=== PATIENT | male | born 1950 | race Caucasian/White ===

== ENCOUNTER 2017-05-08 07:42 | Inpatient (IN) | payer MEDICARE ==
[~2017-05-08] VITALS: Ht 170.2 cm; Wt 54.5 kg
[~2017-05-08 07:42] MED LIST: ACET160S2 PO; AMLO2.5T PO; ATOR20TA66 PO; BALS60OI TP; CLON-527 PO; CLON0.5T23 PO; DILT120C19; DILT60TA35 PO; DOCU1ENE3 PR; FAMO-129 PO; GABA-532 PO; GABA300C PO; GUAI600T45 PO; HYDR-565 PO; LACT1CAP65 PO; METH12VI2 SQ; MORP10SY4; MORP20SO PO; MSC30T PO; NITR0.4T51 SL; POLY17PO10 PO; POTA10CA44 PO; PRED20TA PO; PREG300C PO; SERIN IH; TIOT18CA3 IH; TIZA2TAB4 PO; ZOLP10TA5 PO
[2017-05-08] MEDS ORDERED: fentaNYL/PF 50MCG/1 ML 2ML syringe ONE (07:44)
[2017-05-08] MEDS ORDERED: diltiazem 5mg/ml 5ml inj. IV ONE (07:50)
[2017-05-08] MEDS ORDERED: ipratropium 0.5 MG/2.5ML nebule IH ONE (08:00)
[2017-05-08] MEDS ORDERED: albuterol 2.5 MG/3 ML nebule CONTNEB PRN (08:00)
[2017-05-08] MEDS ORDERED: ipratropium/albuterol 3ml nebule NEB ONE (08:05)
[2017-05-08 08:09] LABS: BASOPHILS % (AUTO) 0.1 % (0-1); EOSINOPHILS # (AUTO) 0.4 X10'3 (0-0.9); EOSINOPHILS % (AUTO) 1.2 % (0-6); HEMATOCRIT 34.8 % (42.0-52.0); HEMOGLOBIN 11.7 g/dl (14.0-17.9); LYMPHOCYTES # (AUTO) 2.2 X10'3 (1.1-4.8); LYMPHOCYTES % (AUTO) 7.7 % (21-51); MEAN CORPUSCULAR HEMOGLOBIN 29.8 PG (27.0-31.0); MEAN CORPUSCULAR HGB CONC 33.6 % (33.0-36.5); MEAN CORPUSCULAR VOLUME 88.8 FL (78-98); MEAN PLATELET VOLUME 6.7 FL (7.4-10.4); MONOCYTES # (AUTO) 1.1 X10'3 (0-0.9); MONOCYTES % (AUTO) 3.8 % (2-12); NEUTROPHILS # (AUTO) 25.5 X10'3 (1.8-7.7); NEUTROPHILS % (AUTO) 87.2 % (42-75); PLATELET COUNT 512 X10'3 (140-440); RED BLOOD COUNT 3.92 X10'6 (4.70-6.10); RED CELL DISTRIBUTION WIDTH 17.3 % (11.5-14.5)
[2017-05-08] MEDS ORDERED: levoFLOXACIN-Levaquin 750MG/D5 150 ML IV STA ×2 (08:09→09:04)
[2017-05-08] MEDS ORDERED: LORazepam 2 mg/ml vial IV ONE ×3 (08:10→10:45)
[2017-05-08] MEDS ORDERED: normal saline 1000ml 1,000 ML IV ONE (08:10)
[2017-05-08 08:13] LABS: WHITE BLOOD COUNT 29.2 X10'3 (4.5-11.0)
[2017-05-08 08:19] LABS: PARTIAL THROMBOPLASTIN TIME 27 SECONDS (22-32); PROTHROMBIN TIME 10.2 SECONDS (9.0-12.0)
[2017-05-08 08:24] LABS: ALANINE AMINOTRANSFERASE 25 U/L (12-78); ALBUMIN 1.8 G/DL (3.4-5.0); ALBUMIN/GLOBULIN RATIO 0.4 (1.1-1.5); ALKALINE PHOSPHATASE 140 IU/L (46-116); ANION GAP 11 (8-16); ASPARTATE AMINO TRANSFERASE 12 U/L (10-37); BILIRUBIN,TOTAL 0.4 MG/DL (0.1-1.0); BLOOD UREA NITROGEN 30 MG/DL (7-18); CALCIUM 8.9 MG/DL (8.5-10.1); CHLORIDE 108 MMOL/L (99-107); CREATININE 0.81 MG/DL (0.60-1.10); GLUCOSE 216 MG/DL (70-104); POTASSIUM 3.1 MMOL/L (3.5-5.1); SODIUM 148 MMOL/L (135-145); TOTAL CARBON DIOXIDE 28.8 MMOL/L (24-32); TOTAL PROTEIN 6.9 G/DL (6.4-8.2); eGFR > 90 ML/MIN
[2017-05-08] MEDS: cefTRIAXone 1g/NS 100ml IVPB 100 ML IV ONE ×2 (08:28→08:36)
[2017-05-08] MEDS: CefTRIAXone 1 gm/50ml D5W ADV 50 ML IV ONE ×2 (08:29→08:35)
[2017-05-08 08:30] LABS: ANISOCYTOSIS 1+; PLATELET ESTIMATE INCREASED; TOTAL CELLS COUNTED 100
[2017-05-08 08:31] LABS: MAGNESIUM 1.9 MG/DL (1.5-2.4)
[2017-05-08 08:32] LABS: SCHISTOCYTES FEW
[2017-05-08 08:46] LABS: ABG HCO3 23.7 mmol/L (22.0-26.0); ABG OXYGEN SATURATION 96.3 % (95-98); ABG PCO2 (T) 39.6 mmHg (35.0-48.0); ABG PH (T) 7.396 (7.350-7.450); ABG PO2 (T) 94.8 mmHg (83-108); FCOHb 0.9 % (0.5-1.5); FMetHb 0.3 % (0.3-1.12); FO2Hb 95.1 % (94-100); MINUTE VOLUME 18 L/min; PATIENT TEMPERATURE 37.3; RESPIRATORY RATE 18 b/min; TOTAL HEMOGLOBIN 10.4 G/dl (14.0-18.0)
[2017-05-08] MEDS ORDERED: azithromycin/NS 500mg/250ml 250 ML IV ONE (10:40)
[2017-05-08 11:31] LABS: CLARITY,URINE SLIGHTLY CLOUDY (Clear); COLOR,URINE STRAW (Yellow); GLUCOSE, URINE NEGATIVE (Neg); KETONES,URINE NEGATIVE (Neg); LEUKOCYTE ESTERASE ,URINE SMALL (Neg); NITRITES, URINE POSITIVE (Neg); OCCULT BLOOD,URINE SMALL (Neg); PROTEIN,URINE NEGATIVE (Neg); UA COLLECTION TYPE FOLEY CATH; UROBILINOGEN,URINE 0.2 E.U/dL (0.2-1.0)
[2017-05-08 11:37] LABS: MUCUS STRANDS FEW /LPF (Neg); SQUAMOUS EPITHELIAL CELL,UR FEW /LPF (FEW)
[2017-05-08 11:38] LABS: CAL OXALATE CRYSTALS 4+ /HPF (NEGATIVE); YEAST MANY /HPF (NEGATIVE)
[2017-05-08 11:39] LABS: BACTERIA,URINE 2+ /HPF (Neg); RBC,URINE 0-2 /HPF (0-2)
[2017-05-08] MEDS ORDERED: potassium chloride 10mEq CAPSULE.SA PO SCH ×2 (14:25→14:35)
[2017-05-08] MEDS ORDERED: potassium chloride 10mEq CAPSULE.SA PO ONE ×2 (14:25→14:44)
[2017-05-08 15:46] LABS: ABG BASE EXCESS 3.9 mmol/L (-2.0-3.0); ABG OXYGEN SATURATION 90.7 % (95-98); ABG PCO2 (T) 35.4 mmHg (35.0-48.0); ABG PH (T) 7.501 (7.350-7.450); FLOW 3 L/min; FMetHb 0.3 % (0.3-1.12); FO2Hb 89.5 % (94-100); TOTAL HEMOGLOBIN 10.6 G/dl (14.0-18.0)
[2017-05-08] MEDS ORDERED: oxyCODONE IR 5mg (immed. release) tablet PO ONE (17:50)
[2017-05-08] MEDS ORDERED: ondansetron/PF 4mg/2ml inj IV PRN (20:15)
[2017-05-08] MEDS ORDERED: magnesium 4gm in 100ml NS 100 ML IV PRN (20:15)
[2017-05-08] MEDS ORDERED: magnesium 2GM in 50ml NS 50 ML IV PRN (20:15)
[2017-05-08] MEDS ORDERED: HYDROcodone/acetaminophen 5mg/325mg tablet PO PRN (20:15)
[2017-05-08] MEDS ORDERED: magnesium hydroxide 30ml (MOM) UD suspension PO PRN (20:15)
[2017-05-08] MEDS ORDERED: magnesium Cl slow-release 64mg tablet PO PRN (20:15)
[2017-05-08] MEDS ORDERED: potassium Cl 40MEQ/NS 500ml 500 ML IV PRN ×2 (20:15)
[2017-05-08] MEDS ORDERED: albuterol 2.5 MG/3 ML nebule NEB PRN (20:15)
[2017-05-08] MEDS ORDERED: mag hydrox/Alum hydrox/simeth 30ml oral suspension PO PRN (20:15)
[2017-05-08] MEDS ORDERED: potassium Cl 20 mEq SR tablet PO PRN (20:15)
[2017-05-08] MEDS ORDERED: acetaminophen 325mg tablet PO PRN ×2 (20:15)
[2017-05-08 22:00] VITALS: BP 135/85
[2017-05-08] MEDS ORDERED: vancomycin/NS 1 GM ADD-VANTAGE 250 ML IV ONE (22:05)
[2017-05-08] MEDS: HYDROcodone/acetaminophen 10/325mg tab PO PRN (23:22)
[2017-05-08] MEDS: normal saline 1000ml 1,000 ML IV SCH (23:24)
[2017-05-09] MEDS: piperacillin/tazo 3.375gm/50ml 50 ML IV SCH ×3 (00:56→15:19)
[2017-05-09 04:00] VITALS: BP 135/81
[2017-05-09] MEDS: HYDROcodone/acetaminophen 10/325mg tab PO PRN ×4 (04:43→22:57)
[2017-05-09 06:00] VITALS: BP 135/75
[2017-05-09 06:27] LABS: BASOPHILS % (AUTO) 0.3 % (0-1); EOSINOPHILS % (AUTO) 0.2 % (0-6); HEMATOCRIT 28.7 % (42.0-52.0); HEMOGLOBIN 9.6 g/dl (14.0-17.9); LYMPHOCYTES # (AUTO) 1.6 X10'3 (1.1-4.8); LYMPHOCYTES % (AUTO) 10.9 % (21-51); MEAN CORPUSCULAR HEMOGLOBIN 29.5 PG (27.0-31.0); MEAN CORPUSCULAR HGB CONC 33.6 % (33.0-36.5); MEAN CORPUSCULAR VOLUME 87.9 FL (78-98); MEAN PLATELET VOLUME 6.8 FL (7.4-10.4); MONOCYTES # (AUTO) 0.8 X10'3 (0-0.9); MONOCYTES % (AUTO) 5.3 % (2-12); NEUTROPHILS # (AUTO) 12.6 X10'3 (1.8-7.7); NEUTROPHILS % (AUTO) 83.3 % (42-75); PLATELET COUNT 392 X10'3 (140-440); RED BLOOD COUNT 3.26 X10'6 (4.70-6.10); RED CELL DISTRIBUTION WIDTH 17.3 % (11.5-14.5); WHITE BLOOD COUNT 15.1 X10'3 (4.5-11.0)
[2017-05-09 07:08] LABS: ANION GAP 7 (8-16); BLOOD UREA NITROGEN 22 MG/DL (7-18); BUN/CREATININE RATIO 34.4 (5.4-32.0); CHLORIDE 110 MMOL/L (99-107); CREATININE 0.64 MG/DL (0.60-1.10); GLUCOSE 77 MG/DL (70-104); POTASSIUM 3.2 MMOL/L (3.5-5.1); SODIUM 146 MMOL/L (135-145); TOTAL CARBON DIOXIDE 28.6 MMOL/L (24-32); eGFR > 90 ML/MIN
[2017-05-09 07:09] LABS: ALANINE AMINOTRANSFERASE 10 U/L (12-78); ALBUMIN 1.4 G/DL (3.4-5.0); ALBUMIN/GLOBULIN RATIO 0.3 (1.1-1.5); ALKALINE PHOSPHATASE 104 IU/L (46-116); ASPARTATE AMINO TRANSFERASE 10 U/L (10-37); BILIRUBIN,TOTAL 0.3 MG/DL (0.1-1.0); CALCIUM 8.7 MG/DL (8.5-10.1); MAGNESIUM 1.9 MG/DL (1.5-2.4); TOTAL PROTEIN 5.8 G/DL (6.4-8.2)
[2017-05-09] MEDS: K and/or MAG REPLACEMENT MC SCH (08:00)
[2017-05-09] MEDS: docusate sod 100mg capsule PO SCH ×2 (08:01→20:10)
[2017-05-09] MEDS: potassium Cl 20 mEq SR tablet PO PRN ×2 (08:01→15:19)
[2017-05-09] MEDS: pantoprazole 40 MG vial IV SCH (08:02)
[2017-05-09] MEDS: enoxaparin 40mg/0.4ml syringe SQ SCH (08:02)
[2017-05-09] MEDS: normal saline 1000ml 1,000 ML IV SCH ×2 (09:31→22:51)
[2017-05-09 10:10] LABS: TOTAL CELLS COUNTED 100
[2017-05-09 10:11] LABS: ANISOCYTOSIS 1+; PLATELET ESTIMATE NORMAL; TOXIC GRANULATION 1+
[2017-05-09 10:12] LABS: SCHISTOCYTES FEW
[2017-05-09 11:00] VITALS: BP 146/82
[2017-05-09] MEDS: VANCOMYCIN 750MG IV in NS 250 ML IV SCH ×2 (11:55→22:57)
[2017-05-09] MEDS ORDERED: DOCUSATE SODIUM PR PRN (12:15)
[2017-05-09] MEDS ORDERED: BENZOCAINE PR PRN (12:15)
[2017-05-09] MEDS ORDERED: [UNRECOGNIZED DRUG - OTHER] PR PRN (12:15)
[2017-05-09] MEDS ORDERED: atorvastatin 20mg tablet PO SCH (13:00)
[2017-05-09 15:00] VITALS: BP 156/89
[2017-05-09] MEDS: LACTOSE-FREE FOOD 237ML (BOOST) PO SCH (18:01)
[2017-05-09 19:00] VITALS: BP 142/88
[2017-05-09 23:00] VITALS: BP 154/90
[2017-05-10] MEDS: piperacillin/tazo 3.375gm/50ml 50 ML IV SCH ×3 (00:17→16:23)
[2017-05-10] MEDS: gabapentin 300mg capsule PO PRN ×2 (02:18→21:46)
[2017-05-10 03:00] VITALS: BP 150/88
[2017-05-10 06:00] VITALS: BP 153/90
[2017-05-10 06:41] LABS: BASOPHILS % (AUTO) 0 % (0-1); EOSINOPHILS # (AUTO) 0.2 X10'3 (0-0.9); EOSINOPHILS % (AUTO) 1.3 % (0-6); HEMATOCRIT 30.2 % (42.0-52.0); HEMOGLOBIN 10.2 g/dl (14.0-17.9); LYMPHOCYTES # (AUTO) 2.7 X10'3 (1.1-4.8); LYMPHOCYTES % (AUTO) 14.8 % (21-51); MEAN CORPUSCULAR HEMOGLOBIN 29.5 PG (27.0-31.0); MEAN CORPUSCULAR HGB CONC 33.8 % (33.0-36.5); MEAN CORPUSCULAR VOLUME 87.4 FL (78-98); MEAN PLATELET VOLUME 6.7 FL (7.4-10.4); MONOCYTES # (AUTO) 0.8 X10'3 (0-0.9); MONOCYTES % (AUTO) 4.7 % (2-12); NEUTROPHILS # (AUTO) 14.4 X10'3 (1.8-7.7); NEUTROPHILS % (AUTO) 79.2 % (42-75); PLATELET COUNT 480 X10'3 (140-440); RED BLOOD COUNT 3.46 X10'6 (4.70-6.10); RED CELL DISTRIBUTION WIDTH 17.7 % (11.5-14.5); WHITE BLOOD COUNT 18.2 X10'3 (4.5-11.0)
[2017-05-10] MEDS: potassium Cl 20 mEq SR tablet PO PRN ×2 (07:30→13:30)
[2017-05-10] MEDS: HYDROcodone/acetaminophen 10/325mg tab PO PRN ×4 (07:30→21:46)
[2017-05-10] MEDS: LACTOBACILLUS RHAMNOSUS GG 15 billion unit sprinkle caps PO SCH (07:30)
[2017-05-10 07:49] LABS: ALANINE AMINOTRANSFERASE 18 U/L (12-78); ALBUMIN 1.5 G/DL (3.4-5.0); ALBUMIN/GLOBULIN RATIO 0.3 (1.1-1.5); ALKALINE PHOSPHATASE 104 IU/L (46-116); ANION GAP 12 (8-16); ASPARTATE AMINO TRANSFERASE 16 U/L (10-37); BILIRUBIN,TOTAL 0.4 MG/DL (0.1-1.0); BLOOD UREA NITROGEN 10 MG/DL (7-18); BUN/CREATININE RATIO 16.7 (5.4-32.0); CALCIUM 8.1 MG/DL (8.5-10.1); CHLORIDE 107 MMOL/L (99-107); GLUCOSE 63 MG/DL (70-104); MAGNESIUM 1.6 MG/DL (1.5-2.4); POTASSIUM 3.1 MMOL/L (3.5-5.1); SODIUM 143 MMOL/L (135-145); TOTAL CARBON DIOXIDE 23.6 MMOL/L (24-32); TOTAL PROTEIN 6.1 G/DL (6.4-8.2); eGFR > 90 ML/MIN
[2017-05-10 07:53] LABS: ANISOCYTOSIS 1+; NUCLEATED RED BLOOD CELLS 1 /100WBC (0-0); PLATELET ESTIMATE INCREASED; POLYCHROMASIA 1+; TOTAL CELLS COUNTED 100; TOXIC GRANULATION 1+
[2017-05-10] MEDS: K and/or MAG REPLACEMENT MC SCH (08:00)
[2017-05-10] MEDS: enoxaparin 40mg/0.4ml syringe SQ SCH (08:00)
[2017-05-10] MEDS: pantoprazole 40 MG vial IV SCH (08:00)
[2017-05-10] MEDS ORDERED: clonazePAM 0.5mg tablet PO PRN (08:00)
[2017-05-10] MEDS: docusate sod 100mg capsule PO SCH ×2 (08:00→20:00)
[2017-05-10] MEDS ORDERED: VANCOMYCIN LEVEL IV ONE (09:30)
[2017-05-10] MEDS: VANCOMYCIN 750MG IV in NS 250 ML IV SCH (10:56)
[2017-05-10 11:00] VITALS: BP 150/93
[2017-05-10] MEDS: LACTOSE-FREE FOOD 237ML (BOOST) PO SCH ×2 (12:30→17:54)
[2017-05-10] MEDS: normal saline 1000ml 1,000 ML IV SCH (13:25)
[2017-05-10 15:00] VITALS: BP 139/82
[2017-05-10 19:00] VITALS: BP 118/52
[2017-05-10] MEDS: vancomycin/NS 1 GM ADD-VANTAGE 250 ML IV SCH (21:46)
[2017-05-10 23:00] VITALS: BP 149/86
[2017-05-11] MEDS: piperacillin/tazo 3.375gm/50ml 50 ML IV SCH ×4 (00:45→23:30)
[2017-05-11] MEDS: normal saline 1000ml 1,000 ML IV SCH ×3 (01:42→21:05)
[2017-05-11 03:00] VITALS: BP 158/92
[2017-05-11] MEDS: HYDROcodone/acetaminophen 10/325mg tab PO PRN ×5 (04:34→21:39)
[2017-05-11 06:00] VITALS: BP 149/87
[2017-05-11 06:22] LABS: BASOPHILS % (AUTO) 0.2 % (0-1); EOSINOPHILS # (AUTO) 0.3 X10'3 (0-0.9); EOSINOPHILS % (AUTO) 1.4 % (0-6); HEMATOCRIT 29.7 % (42.0-52.0); HEMOGLOBIN 10.1 g/dl (14.0-17.9); LYMPHOCYTES # (AUTO) 2.3 X10'3 (1.1-4.8); LYMPHOCYTES % (AUTO) 12.6 % (21-51); MEAN CORPUSCULAR HEMOGLOBIN 29.9 PG (27.0-31.0); MEAN CORPUSCULAR HGB CONC 33.9 % (33.0-36.5); MEAN CORPUSCULAR VOLUME 88.2 FL (78-98); MEAN PLATELET VOLUME 6.7 FL (7.4-10.4); MONOCYTES # (AUTO) 0.6 X10'3 (0-0.9); MONOCYTES % (AUTO) 3.3 % (2-12); NEUTROPHILS # (AUTO) 14.7 X10'3 (1.8-7.7); NEUTROPHILS % (AUTO) 82.5 % (42-75); PLATELET COUNT 499 X10'3 (140-440); RED BLOOD COUNT 3.37 X10'6 (4.70-6.10); RED CELL DISTRIBUTION WIDTH 17.2 % (11.5-14.5); WHITE BLOOD COUNT 17.9 X10'3 (4.5-11.0)
[2017-05-11 06:53] LABS: ALANINE AMINOTRANSFERASE 15 U/L (12-78); ALBUMIN 1.5 G/DL (3.4-5.0); ALBUMIN/GLOBULIN RATIO 0.3 (1.1-1.5); ALKALINE PHOSPHATASE 94 IU/L (46-116); ANION GAP 10 (8-16); ASPARTATE AMINO TRANSFERASE 14 U/L (10-37); BILIRUBIN,TOTAL 0.4 MG/DL (0.1-1.0); BLOOD UREA NITROGEN 8 MG/DL (7-18); BUN/CREATININE RATIO 13.6 (5.4-32.0); CHLORIDE 107 MMOL/L (99-107); CREATININE 0.59 MG/DL (0.60-1.10); GLUCOSE 71 MG/DL (70-104); MAGNESIUM 1.7 MG/DL (1.5-2.4); POTASSIUM 3.1 MMOL/L (3.5-5.1); SODIUM 142 MMOL/L (135-145); TOTAL CARBON DIOXIDE 24.8 MMOL/L (24-32); eGFR > 90 ML/MIN
[2017-05-11] MEDS: docusate sod 100mg capsule PO SCH ×2 (08:00→19:58)
[2017-05-11] MEDS: K and/or MAG REPLACEMENT MC SCH (08:00)
[2017-05-11] MEDS: gabapentin 300mg capsule PO PRN ×2 (08:52→21:39)
[2017-05-11] MEDS: LACTOBACILLUS RHAMNOSUS GG 15 billion unit sprinkle caps PO SCH (08:52)
[2017-05-11] MEDS: pantoprazole 40 MG vial IV SCH (08:53)
[2017-05-11] MEDS: potassium Cl 20 mEq SR tablet PO PRN ×3 (08:53→17:25)
[2017-05-11] MEDS: enoxaparin 40mg/0.4ml syringe SQ SCH (08:54)
[2017-05-11 09:50] LABS: PLATELET ESTIMATE INCREASED; TOTAL CELLS COUNTED 100
[2017-05-11 09:51] LABS: ANISOCYTOSIS 1+; MICROCYTOSIS 1+; POLYCHROMASIA 1+
[2017-05-11] MEDS: vancomycin/NS 1 GM ADD-VANTAGE 250 ML IV SCH ×2 (10:00→19:58)
[2017-05-11 11:00] VITALS: BP 146/86
[2017-05-11] MEDS: LACTOSE-FREE FOOD 237ML (BOOST) PO SCH ×2 (13:05→17:46)
[2017-05-11 15:00] VITALS: BP 125/82
[2017-05-11 18:00] VITALS: BP 143/83
[2017-05-11 22:00] VITALS: BP 126/88
[2017-05-12 02:00] VITALS: BP 149/89
[2017-05-12] MEDS: HYDROcodone/acetaminophen 10/325mg tab PO PRN ×4 (05:04→20:45)
[2017-05-12 05:10] LABS: BASOPHILS % (AUTO) 0.2 % (0-1); EOSINOPHILS # (AUTO) 0.3 X10'3 (0-0.9); EOSINOPHILS % (AUTO) 1.9 % (0-6); HEMOGLOBIN 10.1 g/dl (14.0-17.9); LYMPHOCYTES # (AUTO) 2.7 X10'3 (1.1-4.8); MEAN CORPUSCULAR HEMOGLOBIN 29.6 PG (27.0-31.0); MEAN CORPUSCULAR HGB CONC 33.7 % (33.0-36.5); MEAN PLATELET VOLUME 6.5 FL (7.4-10.4); MONOCYTES # (AUTO) 0.6 X10'3 (0-0.9); MONOCYTES % (AUTO) 3.6 % (2-12); NEUTROPHILS # (AUTO) 13.3 X10'3 (1.8-7.7); NEUTROPHILS % (AUTO) 78.3 % (42-75); PLATELET COUNT 529 X10'3 (140-440); RED BLOOD COUNT 3.41 X10'6 (4.70-6.10); RED CELL DISTRIBUTION WIDTH 17.5 % (11.5-14.5)
[2017-05-12 06:00] VITALS: BP 155/90
[2017-05-12 06:01] LABS: ALANINE AMINOTRANSFERASE 12 U/L (12-78); ALBUMIN 1.4 G/DL (3.4-5.0); ALBUMIN/GLOBULIN RATIO 0.3 (1.1-1.5); ALKALINE PHOSPHATASE 84 IU/L (46-116); ANION GAP 5 (8-16); ASPARTATE AMINO TRANSFERASE 14 U/L (10-37); BILIRUBIN,TOTAL 0.2 MG/DL (0.1-1.0); BLOOD UREA NITROGEN 5 MG/DL (7-18); BUN/CREATININE RATIO 8.1 (5.4-32.0); CHLORIDE 109 MMOL/L (99-107); CREATININE 0.62 MG/DL (0.60-1.10); GLUCOSE 72 MG/DL (70-104); MAGNESIUM 1.8 MG/DL (1.5-2.4); POTASSIUM 3.6 MMOL/L (3.5-5.1); SODIUM 142 MMOL/L (135-145); TOTAL CARBON DIOXIDE 27.7 MMOL/L (24-32); eGFR > 90 ML/MIN
[2017-05-12 07:42] LABS: ANISOCYTOSIS 1+; PLATELET ESTIMATE INCREASED; POLYCHROMASIA 1+; TOTAL CELLS COUNTED 100
[2017-05-12 07:43] LABS: TOXIC GRANULATION 2+
[2017-05-12] MEDS: docusate sod 100mg capsule PO SCH ×2 (08:00→20:00)
[2017-05-12] MEDS: K and/or MAG REPLACEMENT MC SCH (08:00)
[2017-05-12] MEDS: LACTOBACILLUS RHAMNOSUS GG 15 billion unit sprinkle caps PO SCH (09:07)
[2017-05-12] MEDS: pantoprazole 40mg Tablet.DR PO SCH (09:08)
[2017-05-12] MEDS: enoxaparin 40mg/0.4ml syringe SQ SCH (09:09)
[2017-05-12] MEDS: levoFLOXACIN-Levaquin 750MG/D5 150 ML IV SCH (09:15)
[2017-05-12] MEDS ORDERED: VANCOMYCIN LEVEL IV ONE (09:30)
[2017-05-12 11:00] VITALS: BP 137/85
[2017-05-12] MEDS: ipratropium/albuterol 3ml nebule NEB SCH ×4 (11:07→23:04)
[2017-05-12] MEDS: linezolid 600mg/300ml PREMIX 300 ML IV SCH ×2 (11:32→20:39)
[2017-05-12] MEDS: normal saline 1000ml 1,000 ML IV SCH (11:32)
[2017-05-12] MEDS: LACTOSE-FREE FOOD 237ML (BOOST) PO SCH ×2 (13:15→17:30)
[2017-05-12 15:00] VITALS: BP 126/74
[2017-05-12] MEDS: benzonatate 100mg capsule PO SCH (16:08)
[2017-05-12 18:00] VITALS: BP_SYST 141; BP_SYST 92; BP_DIAS 57; BP_DIAS 83
[2017-05-12 22:00] VITALS: BP 151/82
[2017-05-13] MEDS: benzonatate 100mg capsule PO SCH ×3 (00:13→15:41)
[2017-05-13 02:00] VITALS: BP 153/83
[2017-05-13] MEDS: HYDROcodone/acetaminophen 10/325mg tab PO PRN ×5 (02:03→21:47)
[2017-05-13] MEDS: ipratropium/albuterol 3ml nebule NEB SCH ×6 (03:45→23:00)
[2017-05-13] MEDS: normal saline 1000ml 1,000 ML IV SCH (04:50)
[2017-05-13 06:00] VITALS: BP 148/94
[2017-05-13 06:10] LABS: BASOPHILS % (AUTO) 0.2 % (0-1); EOSINOPHILS # (AUTO) 0.4 X10'3 (0-0.9); EOSINOPHILS % (AUTO) 1.9 % (0-6); HEMATOCRIT 28.9 % (42.0-52.0); HEMOGLOBIN 9.7 g/dl (14.0-17.9); LYMPHOCYTES # (AUTO) 2.7 X10'3 (1.1-4.8); LYMPHOCYTES % (AUTO) 13.7 % (21-51); MEAN CORPUSCULAR HEMOGLOBIN 29.4 PG (27.0-31.0); MEAN CORPUSCULAR HGB CONC 33.6 % (33.0-36.5); MEAN CORPUSCULAR VOLUME 87.6 FL (78-98); MEAN PLATELET VOLUME 6.6 FL (7.4-10.4); MONOCYTES # (AUTO) 0.6 X10'3 (0-0.9); MONOCYTES % (AUTO) 2.9 % (2-12); NEUTROPHILS # (AUTO) 15.7 X10'3 (1.8-7.7); NEUTROPHILS % (AUTO) 81.3 % (42-75); PLATELET COUNT 545 X10'3 (140-440); RED CELL DISTRIBUTION WIDTH 17.1 % (11.5-14.5); WHITE BLOOD COUNT 19.4 X10'3 (4.5-11.0)
[2017-05-13 06:32] LABS: ALANINE AMINOTRANSFERASE 13 U/L (12-78); ALBUMIN 1.5 G/DL (3.4-5.0); ALBUMIN/GLOBULIN RATIO 0.3 (1.1-1.5); ALKALINE PHOSPHATASE 88 IU/L (46-116); ANION GAP 9 (8-16); ASPARTATE AMINO TRANSFERASE 12 U/L (10-37); BILIRUBIN,TOTAL 0.2 MG/DL (0.1-1.0); BLOOD UREA NITROGEN 6 MG/DL (7-18); BUN/CREATININE RATIO 9.7 (5.4-32.0); CALCIUM 8.2 MG/DL (8.5-10.1); CHLORIDE 105 MMOL/L (99-107); CREATININE 0.62 MG/DL (0.60-1.10); GLUCOSE 122 MG/DL (70-104); MAGNESIUM 1.6 MG/DL (1.5-2.4); POTASSIUM 3.3 MMOL/L (3.5-5.1); SODIUM 140 MMOL/L (135-145); TOTAL CARBON DIOXIDE 25.6 MMOL/L (24-32); TOTAL PROTEIN 6.1 G/DL (6.4-8.2); eGFR > 90 ML/MIN
[2017-05-13] MEDS: K and/or MAG REPLACEMENT MC SCH (06:45)
[2017-05-13] MEDS ORDERED: potassium Cl 20 mEq SR tablet PO PRN (07:25)
[2017-05-13] MEDS ORDERED: magnesium Cl slow-release 64mg tablet PO PRN (07:25)
[2017-05-13] MEDS ORDERED: potassium Cl 40MEQ/NS 500ml 500 ML IV PRN ×2 (07:25)
[2017-05-13] MEDS ORDERED: magnesium 4gm in 100ml NS 100 ML IV PRN (07:25)
[2017-05-13] MEDS ORDERED: magnesium 2GM in 50ml NS 50 ML IV PRN (07:25)
[2017-05-13] MEDS: pantoprazole 40mg Tablet.DR PO SCH (07:43)
[2017-05-13] MEDS: LACTOBACILLUS RHAMNOSUS GG 15 billion unit sprinkle caps PO SCH (07:43)
[2017-05-13] MEDS: levoFLOXACIN-Levaquin 750MG/D5 150 ML IV SCH (07:44)
[2017-05-13] MEDS: enoxaparin 40mg/0.4ml syringe SQ SCH (07:45)
[2017-05-13] MEDS: potassium Cl 20 mEq SR tablet PO PRN ×3 (07:46→16:58)
[2017-05-13] MEDS: docusate sod 100mg capsule PO SCH ×2 (08:00→20:00)
[2017-05-13 09:04] LABS: ANISOCYTOSIS 1+; PLATELET ESTIMATE INCREASED; TOTAL CELLS COUNTED 100
[2017-05-13 09:06] LABS: POLYCHROMASIA FEW
[2017-05-13 09:07] LABS: STOMATOCYTES FEW
[2017-05-13] MEDS: linezolid 600mg tablet PO SCH ×2 (09:10→21:46)
[2017-05-13 11:00] VITALS: BP 151/89
[2017-05-13] MEDS: LACTOSE-FREE FOOD 237ML (BOOST) PO SCH ×2 (13:15→17:56)
[2017-05-13 15:00] VITALS: BP 148/88
[2017-05-13] MEDS: Potassium Cl inj 20 MEQ in normal saline 1000ml 1,000 ML IV SCH (16:57)
[2017-05-13] MEDS: fluconazole 100mg tablet PO SCH (16:58)
[2017-05-13 18:00] VITALS: BP 153/94
[2017-05-13 22:00] VITALS: BP 160/97
[2017-05-14] MEDS: benzonatate 100mg capsule PO SCH ×2 (00:39→08:41)
[2017-05-14 03:00] VITALS: BP 156/86
[2017-05-14] MEDS: HYDROcodone/acetaminophen 10/325mg tab PO PRN ×3 (03:04→13:57)
[2017-05-14 06:00] VITALS: BP 155/99
[2017-05-14 06:40] LABS: BASOPHILS # (AUTO) 0.1 X10'3 (0-0.2); BASOPHILS % (AUTO) 0.3 % (0-1); EOSINOPHILS # (AUTO) 0.4 X10'3 (0-0.9); EOSINOPHILS % (AUTO) 2.6 % (0-6); HEMATOCRIT 30.6 % (42.0-52.0); HEMOGLOBIN 10.3 g/dl (14.0-17.9); LYMPHOCYTES # (AUTO) 2.1 X10'3 (1.1-4.8); LYMPHOCYTES % (AUTO) 12.5 % (21-51); MEAN CORPUSCULAR HEMOGLOBIN 29.7 PG (27.0-31.0); MEAN CORPUSCULAR HGB CONC 33.7 % (33.0-36.5); MEAN CORPUSCULAR VOLUME 88.3 FL (78-98); MEAN PLATELET VOLUME 6.6 FL (7.4-10.4); MONOCYTES # (AUTO) 0.5 X10'3 (0-0.9); MONOCYTES % (AUTO) 3.1 % (2-12); NEUTROPHILS # (AUTO) 13.8 X10'3 (1.8-7.7); NEUTROPHILS % (AUTO) 81.5 % (42-75); PLATELET COUNT 556 X10'3 (140-440); RED BLOOD COUNT 3.46 X10'6 (4.70-6.10); RED CELL DISTRIBUTION WIDTH 18.3 % (11.5-14.5); WHITE BLOOD COUNT 16.9 X10'3 (4.5-11.0)
[2017-05-14] MEDS: Potassium Cl inj 20 MEQ in normal saline 1000ml 1,000 ML IV SCH (06:56)
[2017-05-14] MEDS: ipratropium/albuterol 3ml nebule NEB SCH (07:00)
[2017-05-14 07:10] LABS: ALBUMIN 1.6 G/DL (3.4-5.0); ANION GAP 6 (8-16); BLOOD UREA NITROGEN 3 MG/DL (7-18); BUN/CREATININE RATIO 4.8 (5.4-32.0); CALCIUM 8.3 MG/DL (8.5-10.1); CHLORIDE 103 MMOL/L (99-107); CREATININE 0.63 MG/DL (0.60-1.10); GLUCOSE 75 MG/DL (70-104); MAGNESIUM 1.6 MG/DL (1.5-2.4); SODIUM 137 MMOL/L (135-145); TOTAL CARBON DIOXIDE 28.2 MMOL/L (24-32); eGFR > 90 ML/MIN
[2017-05-14 07:37] LABS: ANISOCYTOSIS 2+; BANDS% (MANUAL) 3 % (0-10); EOSINOPHILS % (MANUAL) 1 % (0-6); LYMPHOCYTES % (MANUAL) 9 % (21-51); METAMYLEOCYTES% (MANUAL) 5 % (0-0); MONOCYTES % (MANUAL) 4 % (2-12); MYELOCYTES % (MANUAL) 1 % (0-0); NEUTROPHILS % (MANUAL) 77 % (42-75); PLATELET ESTIMATE INCREASED; PROMYELOCYTES % (MANUAL) 1 % (0-0); TOTAL CELLS COUNTED 100
[2017-05-14] MEDS: K and/or MAG REPLACEMENT MC SCH (08:00)
[2017-05-14] MEDS: docusate sod 100mg capsule PO SCH (08:00)
[2017-05-14] MEDS ORDERED: diltiazem CD 120mg capsule (once-daily) PO SCH (08:35)
[2017-05-14] MEDS: pantoprazole 40mg Tablet.DR PO SCH (08:38)
[2017-05-14] MEDS: LACTOBACILLUS RHAMNOSUS GG 15 billion unit sprinkle caps PO SCH (08:38)
[2017-05-14] MEDS: levoFLOXACIN-Levaquin 750MG/D5 150 ML IV SCH (08:39)
[2017-05-14] MEDS: fluconazole 100mg tablet PO SCH (08:40)
[2017-05-14] MEDS: linezolid 600mg tablet PO SCH (08:41)
[2017-05-14] MEDS: enoxaparin 40mg/0.4ml syringe SQ SCH (08:42)
[2017-05-14 11:00] VITALS: BP 152/90
[2017-05-14] MEDS ORDERED: FLUC100T9 PO (12:21)
[2017-05-14] MEDS ORDERED: LINE600T6 PO (12:21)
[2017-05-14] MEDS ORDERED: LEVO750T21 PO (12:21)
[2017-05-14] MEDS ORDERED: CARCD120C PO (12:21)
[2017-05-14] MEDS: LACTOSE-FREE FOOD 237ML (BOOST) PO SCH (12:30)
[2017-05-14] MEDS ORDERED: DOCU-28 PO (12:32)
[2017-05-15] MEDS ORDERED: MORP10SY4 (09:46)
== END 2017-05-14 14:35 | disposition home health service (06) | DRG 871 ==
LOC: ER 07:42 → ED HOLD 20:11 → PCU 3S 20:55
PROVIDERS: ADMIT Internal Medicine; ATTEND Internal Medicine
PROC: 5A09357 Assistance with Respiratory Ventilation, Less than 24 Consecutive Hours, Continuous Positive Airway Pressure (ICD-10-PCS; principal; 2017-05-08)
DX: A41.9 Sepsis, unspecified organism (principal); J18.9 Pneumonia, unspecified organism; J96.21 Acute and chronic respiratory failure with hypoxia; E43 Unspecified severe protein-calorie malnutrition; E87.0 Hyperosmolality and hypernatremia; J90 Pleural effusion, not elsewhere classified; I48.91 Unspecified atrial fibrillation; N39.0 Urinary tract infection, site not specified; Z68.1 Body mass index [BMI] 19.9 or less, adult; J44.0 Chronic obstructive pulmonary disease with (acute) lower respiratory infection; J44.1 Chronic obstructive pulmonary disease with (acute) exacerbation; E86.0 Dehydration; Z16.21 Resistance to vancomycin; M21.372 Foot drop, left foot; M21.371 Foot drop, right foot; B95.2 Enterococcus as the cause of diseases classified elsewhere; B96.20 Unspecified Escherichia coli [E. coli] as the cause of diseases classified elsewhere; E87.6 Hypokalemia; I10 Essential (primary) hypertension; I25.10 Atherosclerotic heart disease of native coronary artery without angina pectoris; I25.2 Old myocardial infarction; Z79.899 Other long term (current) drug therapy; Z91.040 Latex allergy status; Z88.8 Allergy status to other drugs, medicaments and biological substances; Z91.018 Allergy to other foods; Z86.73 Personal history of transient ischemic attack (TIA), and cerebral infarction without residual deficits; Z85.118 Personal history of other malignant neoplasm of bronchus and lung; Z87.891 Personal history of nicotine dependence
CPT/HCPCS: 36415; 36600; 71045; 71250; 72148; 80048; 80053; 80202; 81001; 82803; 83605; 83735; 83880; 84145; 84484; 85018; 85025; 85610; 85730; 87040; 87070; 87077; 87088; 87186; 87502; 87503; 92616; 93005; 93306; 94640; 94660; 94760; 96365; 96366; 96368; 96375; 96376; 97162; 97530; 99285; A4649; A6213; C9113; J0456; J0696; J1650; J1956; J2020; J2060; J2270; J2405; J2543; J3010; J3370; J3480; J3490; J7030

== ENCOUNTER 2018-02-17 10:01 | Emergency (ER) | payer MEDICARE ==
[~2018-02-17] VITALS: Ht 182.9 cm; Wt 75.0 kg
[~2018-02-17 10:01] MED LIST changes: -ACET160S2 PO; -AMLO2.5T PO; -ATOR20TA66 PO; -BALS60OI TP; +CARCD120C PO; -CLON-527 PO; -DILT120C19; -DILT60TA35 PO; +DOCU-28 PO; -DOCU1ENE3 PR; +FLUC100T9 PO; -GUAI600T45 PO; +HYDR-4353 PO; -HYDR-565 PO; +LINE600T32 PO; -METH12VI2 SQ; -MORP20SO PO; -PRED20TA PO; -PREG300C PO
[2018-02-17] MEDS ORDERED: methylPREDNISolone sod succ 125mg/2ml vial IV ONE (10:15)
[2018-02-17] MEDS ORDERED: furosemide 10 MG/1 ML 10ml inj IV ONE (10:15)
[2018-02-17 10:39] LABS: BASOPHILS # (AUTO) 0.1 X10'3 (0-0.2); BASOPHILS % (AUTO) 1.4 % (0-1); EOSINOPHILS # (AUTO) 0.2 X10'3 (0-0.9); EOSINOPHILS % (AUTO) 2.5 % (0-6); HEMATOCRIT 36.7 % (42.0-52.0); HEMOGLOBIN 12.4 g/dl (14.0-17.9); LYMPHOCYTES # (AUTO) 2.2 X10'3 (1.1-4.8); LYMPHOCYTES % (AUTO) 29.4 % (21-51); MEAN CORPUSCULAR HGB CONC 33.8 % (33.0-36.5); MEAN CORPUSCULAR VOLUME 88.8 FL (78-98); MEAN PLATELET VOLUME 7.2 FL (7.4-10.4); MONOCYTES # (AUTO) 0.3 X10'3 (0-0.9); MONOCYTES % (AUTO) 4.2 % (2-12); NEUTROPHILS # (AUTO) 4.8 X10'3 (1.8-7.7); NEUTROPHILS % (AUTO) 62.5 % (42-75); PLATELET COUNT 326 X10'3 (140-440); RED BLOOD COUNT 4.14 X10'6 (4.70-6.10); RED CELL DISTRIBUTION WIDTH 13.5 % (11.5-14.5); WHITE BLOOD COUNT 7.6 X10'3 (4.5-11.0)
[2018-02-17 10:56] LABS: ALANINE AMINOTRANSFERASE 23 U/L (12-78); ALBUMIN 3.3 G/DL (3.4-5.0); ALBUMIN/GLOBULIN RATIO 0.9 (1.1-1.5); ALKALINE PHOSPHATASE 65 IU/L (46-116); ANION GAP 6 (8-16); ASPARTATE AMINO TRANSFERASE 23 U/L (10-37); BILIRUBIN,TOTAL 0.2 MG/DL (0.1-1.0); BLOOD UREA NITROGEN 14 MG/DL (7-18); BUN/CREATININE RATIO 16.7 (5.4-32.0); CALCIUM 8.4 MG/DL (8.5-10.1); CHLORIDE 105 MMOL/L (99-107); CREATININE 0.84 MG/DL (0.60-1.10); GLUCOSE 89 MG/DL (70-104); SODIUM 139 MMOL/L (135-145); TOTAL CARBON DIOXIDE 27.9 MMOL/L (24-32); TOTAL PROTEIN 6.9 G/DL (6.4-8.2); eGFR 90 ML/MIN
[2018-02-17 11:05] VITALS: BP 142/79
[2018-02-17 11:05] LABS: POTASSIUM 3.9 MMOL/L (3.5-5.1)
[2018-02-17 11:18] LABS: D-DIMER 1.62 MG/L FEU (0-0.50)
[2018-02-17] MEDS ORDERED: PRED20TA PO (11:18)
[2018-02-17] MEDS ORDERED: AMOX-419 PO (11:18)
[2018-02-17] MEDS ORDERED: ipratropium/albuterol 3ml nebule NEB ONE (11:35)
== END 2018-02-17 12:07 | disposition home or self-care (01) ==
LOC: ER 10:01
DX: J44.1 Chronic obstructive pulmonary disease with (acute) exacerbation (principal); J20.9 Acute bronchitis, unspecified; J44.0 Chronic obstructive pulmonary disease with (acute) lower respiratory infection; I11.0 Hypertensive heart disease with heart failure; I50.9 Heart failure, unspecified; Z99.2 Dependence on renal dialysis; Z85.118 Personal history of other malignant neoplasm of bronchus and lung; Z88.1 Allergy status to other antibiotic agents; Z79.899 Other long term (current) drug therapy; Z88.6 Allergy status to analgesic agent; Z88.8 Allergy status to other drugs, medicaments and biological substances
CPT/HCPCS: 36415; 71045; 80053; 83880; 84484; 85025; 85379; 93005; 94640; 94760; 96374; 96375; 99285; J1940; J2930

== ENCOUNTER 2018-02-26 09:05 | Outpatient (CLI) | payer MEDICARE | END 2018-02-26 23:59 | disposition home or self-care (01) | LOC: VAS 09:05 | PROVIDERS: ATTEND Family Medicine | DX: M62.81 Muscle weakness (generalized) (principal); I48.91 Unspecified atrial fibrillation; J45.909 Unspecified asthma, uncomplicated; I25.2 Old myocardial infarction; I10 Essential (primary) hypertension; F03.90 Unspecified dementia, unspecified severity, without behavioral disturbance, psychotic disturbance, mood disturbance, and anxiety; Z87.891 Personal history of nicotine dependence | CPT/HCPCS: 70544; 70551; 93880 ==

== ENCOUNTER 2023-09-19 08:45 | Emergency (ER) | payer MEDICARE ==
[~2023-09-19] VITALS: Ht 180.3 cm; Wt 75.4 kg
[~2023-09-19 08:45] MED LIST changes: +FLUC100T64 PO; -FLUC100T9 PO; +LINE600T14 PO; -LINE600T32 PO; -POTA10CA44 PO; +POTA10CA85 PO; +SALM50DI2 IH; -SERIN IH; +TIZA-189 PO; -TIZA2TAB4 PO
[2023-09-19] MEDS: methylPREDNISolone sod succ 125mg/2ml vial IV ONE (09:58)
[2023-09-19] MEDS: CefTRIAXone/D5W-Rocephin 1gm 50 ML IV ONE (09:58)
[2023-09-19] MEDS: ipratropium/albuterol 3ml nebule NEB SCH (09:59)
[2023-09-19 10:03] VITALS: PULSE 68; RESP 17; O2SAT 99
[2023-09-19] MEDS: azithromycin/NS 500mg/250ml 250 ML IV SCH (10:04)
[2023-09-19 10:20] LABS: BASOPHILS # (AUTO) 0.1 X10'3 (0-0.2); BASOPHILS % (AUTO) 0.8 % (0-1); EOSINOPHILS # (AUTO) 0.3 X10'3 (0-0.9); EOSINOPHILS % (AUTO) 3.6 % (0-6); HEMATOCRIT 42.3 % (42.0-52.0); HEMOGLOBIN 14.3 g/dl (14.0-17.9); LYMPHOCYTES # (AUTO) 1.6 X10'3 (1.1-4.8); LYMPHOCYTES % (AUTO) 19.8 % (21-51); MEAN CORPUSCULAR HEMOGLOBIN 30.7 PG (27.0-31.0); MEAN CORPUSCULAR HGB CONC 33.7 g/dL (33.0-36.5); MEAN PLATELET VOLUME 7.3 FL (7.4-10.4); MONOCYTES # (AUTO) 0.5 X10'3 (0-0.9); MONOCYTES % (AUTO) 5.8 % (2-12); NEUTROPHILS # (AUTO) 5.6 X10'3 (1.8-7.7); PLATELET COUNT 332 X10'3 (140-440); RED BLOOD COUNT 4.65 X10'6 (4.70-6.10); RED CELL DISTRIBUTION WIDTH 13.1 % (11.5-14.5); WHITE BLOOD COUNT 8.1 X10'3 (4.5-11.0)
[2023-09-19 10:21] VITALS: PULSE 65; RESP 16; O2SAT 98
[2023-09-19 10:40] LABS: ALBUMIN 3.5 G/DL (3.4-5.0); ANION GAP 6 (8-16); BLOOD UREA NITROGEN 12 MG/DL (7-18); BUN/CREATININE RATIO 12.1 (10.0-20.0); CALCIUM 8.6 MG/DL (8.5-10.1); CHLORIDE 98 MMOL/L (99-107); CREATININE 0.99 MG/DL (0.60-1.10); GLUCOSE 93 MG/DL (70-104); POTASSIUM 4.6 MMOL/L (3.5-5.1); PRO BRAIN NATRIURETIC PEPTIDE 116 PG/ML (0-450); SODIUM 131 MMOL/L (135-145); eCRCL 69 ML/MIN; eGFR 74 ML/MIN
[2023-09-19 11:34] VITALS: TEMP 98.2
[2023-09-19 14:05] VITALS: BP 178/95; PULSE 90; RESP 20; O2SAT 98
[2023-09-19] MEDS ORDERED: CEPH-585 PO (14:15)
== END 2023-09-19 14:18 | disposition left against medical advice (07) ==
LOC: ER 08:45
DX: J44.1 Chronic obstructive pulmonary disease with (acute) exacerbation (principal); I11.0 Hypertensive heart disease with heart failure; I50.9 Heart failure, unspecified; Z88.8 Allergy status to other drugs, medicaments and biological substances; I25.2 Old myocardial infarction; Z85.118 Personal history of other malignant neoplasm of bronchus and lung; Z99.2 Dependence on renal dialysis; Z91.018 Allergy to other foods
CPT/HCPCS: 36415; 71046; 80048; 83880; 85025; 87040; 93005; 93306; 94640; 96365; 96368; 96375; 99285; J0456; J0696; J2930; 94760

== ENCOUNTER 2025-04-20 12:12 | Outpatient (CLI) | payer MEDICARE ==
[~2025-04-20 12:12] MED LIST changes: +APIX5TAB3 PO; +BUSP10TA11 PO; -CARCD120C PO; -CLON0.5T23 PO; +CLOP75TA34 PO; +DILT120C52 PO; -DOCU-28 PO; -FAMO-129 PO; -FLUC100T64 PO; +FURO40TA4 PO; -GABA-532 PO; -GABA300C PO; +HYDR-3973 PO; -HYDR-4353 PO; -LACT1CAP65 PO; +LEVO750T68 PO; -LINE600T14 PO; +METO-395 PO; -MORP10SY4; -MSC30T PO; -NITR0.4T51 SL; +PANT40TA54 PO; -POLY17PO10 PO; +POTA-206; -POTA10CA85 PO; +PRAM0.258 PO; +PRAM3TAB; +PRED10TA PO; +PRED20TA PO; +ROFL500T7 PO; -SALM50DI2 IH; -TIOT18CA3 IH; -TIZA-189 PO; -ZOLP10TA5 PO
--- NOTE | 2025-04-20 15:56 | RADIOLOGY REPORT ---
CLINICAL HISTORY: PNEUMONIA, UNSPECIFIED ORGANISM TECHNIQUE: CT of the chest was performed without intravenous contrast. This exam was performed according to our departmental dose optimization program. Up-to-date CT equipment and radiation dose reduction techniques are utilized as appropriate. CTDI: 16.37+ 0.14; DLP: 609.85 mGy COMPARISON: CT chest from 04/03/2025 FINDINGS: Lower Neck: Unremarkable Axilla, Mediastinum and Esther: No axillary lymphadenopathy. Mildly prominent mediastinal lymph nodes appear slightly decreased in size. Limited evaluation of the esther in the absence of intravenous contrast. Small sliding-type hiatal hernia. Heart and Great Vessels: Normal-sized heart without pericardial effusion. Thoracic aorta is normal in caliber containing moderate calcified plaque. Central pulmonary arteries are normal caliber. Severe 3-vessel calcified coronary artery disease. Mild aortic valve calcification. Airway, Lungs and Pleura: Trachea and central airways are patent. There is moderate centrilobular emphysema. There is biapical pleural-parenchymal scarring. A spiculated Area of scarring, consolidation, or mass in the left lung apex is unchanged measuring 1.8 cm on series 3, image 9. Interstitial opacities throughout the lungs. Previously identified superimposed mixed airspace opacities in the right lung significantly improved. A few small mixed interstitial and ground-glass opacities in the right lung remain. Known new airspace consolidation, pleural effusion, or pneumothorax. Upper Abdomen: Small bilateral adrenal gland nodules likely adenomas. Small hiatal hernia. No acute abnormality in the upper abdomen. Chest Wall and Osseous Structures: Bony demineralization. Multilevel thoracic spondylosis. Chronic fracture deformities or osteotomy changes of the lateral right 5th, 6, and 7th ribs. There is a mild height loss superior endplate chronic compression fracture of L1. No destructive osseous lesion. IMPRESSION: 1. Significant improvement in right lung pneumonia since 04/03/2025. 2. Spiculated area of scarring, consolidation, or mass in the left lung apex not significantly changed. Options for follow-up include PET-CT, biopsy, or 3-month CT chest for re-evaluation. 3. Moderate centrilobular emphysema and interstitial scarring in both lungs. 4. Severe 3-vessel calcified coronary artery disease and mild aortic valve calcifications. 5. Mildly prominent mediastinal lymph nodes have decreased in size likely reactive. 6. Small hiatal hernia. Radiation optimization: All CT scans at this facility use at least one of these dose optimization techniques: automated exposure control mA and/or kV adjustment per patient size (includes targeted exams where dose is matched to clinical indication) or iterative reconstruction.
== END 2025-04-20 23:59 | disposition home or self-care (01) ==
LOC: RAD 12:12
PROVIDERS: ATTEND Student in an Organized Health Care Education/Training Program
DX: J43.2 Centrilobular emphysema (principal); J18.9 Pneumonia, unspecified organism; I25.10 Atherosclerotic heart disease of native coronary artery without angina pectoris; K44.9 Diaphragmatic hernia without obstruction or gangrene; J98.4 Other disorders of lung; R59.0 Localized enlarged lymph nodes
CPT/HCPCS: 71250